=== PATIENT | female | born 1995 | race African-American/Black ===

== ENCOUNTER 2021-03-11 09:10 | Emergency (ER) | payer OTHER, MEDICAID ==
[~2021-03-11] VITALS: Ht 170.2 cm; Wt 87.7 kg
[2021-03-11] MEDS ORDERED: SUPER THERAVIT1 EACH PO (09:18)
[2021-03-11] MEDS ORDERED: IRON PO (09:19)
[2021-03-11] MEDS ORDERED: ACID REFLUX PILL PO (09:20)
[2021-03-11] MEDS ORDERED: VIT D3 PO (09:20)
[2021-03-11 09:45] LABS: ABSOLUTE LYMPHOCYTES 1.9 thou/uL (0.8-5.3); ABSOLUTE MONOCYTES 0.4 thou/uL (0.0-1.2); BASOPHILS 0.9 %; HEMATOCRIT 38.5 % (37.0-47.0); HEMOGLOBIN 12.8 gm/dL (12.0-15.0); LYMPHOCYTES 43.9 %; MCH 25.3 pg (26.0-34.0); MCHC 33.2 g/dL (28.0-37.0); MCV 76.3 fL (80.0-100.0); MONOCYTES 8.6 %; MPV 8.4 fl. (7.2-11.1); NUCLEATED RBCS 0 /100WBC; PLATELET COUNT* 249 thou/uL (150-400); POLYS 45.6 %; RBC 5.04 mil/uL (4.20-5.00); RDW-CV 14.3 % (10.5-14.5); WBC 4.3 thou/uL (4.0-11.0)
[2021-03-11 09:59] LABS: CALCIUM 8.5 mg/dL (8.5-10.1); CREATININE 0.7 mg/dL (0.6-1.3); POTASSIUM 3.8 mmol/L (3.5-5.1)
[2021-03-11 10:03] LABS: ALBUMIN 3.7 g/dL (3.4-5.0); MAGNESIUM 1.8 mg/dL (1.8-2.4); TOTAL BILIRUBIN 0.3 mg/dL (<0.1-1.0); TOTAL PROTEIN 7.5 g/dL (6.4-8.2)
[2021-03-11] MEDS ORDERED: FLEXERIL PO (11:56)
[2021-03-11 12:14] VITALS: BP 125/90
--- NOTE | 2021-03-11 15:47 | EKG ---
[place] [address] ELECTROCARDIOGRAM REPORT Name: DENISE PEREIRA Room: [facility]#: [id number] Admission: 03/11/21 Attend Phys: Discharge: 03/11/21 Date of : 89 Date of Service: 03/11/21914 Report #: [id number] THIS REPORT FOR: //name// [facility] ED Test Date: 2021-03-11 Test Time: 09:15:19 Pat Name: DENISE GARCIADepartment: Room: Gender: F Employer Relations Representative: JAMES : 1995 Requested By: Michael Hinton Order Number: [id number] MD: Melchor Bronson Measurements Intervals [place] Rate: 91 P: 66 PA: 129 QRS: 49 QRSD: 92 T: 51 QT: 354 QTc: 436 Interpretive Statements Sinus rhythm Consider left atrial enlargement No previous ECG available for comparison Electronically Signed On 03-11-2021 15:47:23 CDT by Melchor Bronson [email or web address] <ELECTRONICALLY SIGNED> By: Melchor Bronson MD, [facility] 03/11/21 1547 [id number] 4 Melchor Bronson MD, [facility] /EPI
== END 2021-03-11 12:15 | disposition home or self-care (01) ==
LOC: M.ERS 09:10
PROVIDERS: Emergency Medicine Emergency Medical Services
DX: R07.89 Other chest pain (principal); J45.909 Unspecified asthma, uncomplicated; K21.9 Gastro-esophageal reflux disease without esophagitis; Z79.899 Other long term (current) drug therapy

== ENCOUNTER 2021-07-20 13:25 | Emergency (ER) | payer OTHER, MEDICAID ==
[~2021-07-20] VITALS: Ht 157.5 cm; Wt 86.2 kg
[~2021-07-20 13:25] MED LIST: ACID REFLUX PILL PO; FLEXERIL PO; IRON PO; SUPER THERAVIT1 EACH PO; VIT D3 PO
[2021-07-20 13:51] LABS: URINE BILIRUBIN NEGATIVE (Negative); URINE BLOOD NEGATIVE (Negative); URINE COLOR YELLOW; URINE GLUCOSE-RANDOM NEGATIVE (Negative); URINE KETONES NEGATIVE (Negative); URINE NITRITE-REFLEX NEGATIVE (Negative); URINE PROTEIN NEGATIVE (Negative); URINE UROBILINOGEN 0.2 E.U./dl (0.2-1.0)
[2021-07-20 13:53] LABS: URINE CLARITY CLOUDY; URINE LEUKOCYTES-REFLEX 2+ (Negative)
[2021-07-20 14:03] LABS: SQUAMOUS >10 Many /LPF (0-3); URINE RBC 0-2 Rare /HPF (0-2); URINE WBC-REFLEX 6-15 Few /HPF (0-5)
[2021-07-20 14:04] LABS: BACTERIA-REFLEX 1-9 Few /HPF (None Seen); CASTS None Seen /LPF (None Seen); CRYSTALS None Seen /LPF (None Seen)
[2021-07-20] MEDS ORDERED: FLAGYL500 M1 PO (14:28)
[2021-07-20] MEDS ORDERED: AZITHROMYCIN 2250 MG PO (14:28)
[2021-07-20] MEDS ORDERED: SUPRAX400 M1 PO (14:28)
[2021-07-20] MEDS ORDERED: DIFLUCAN150 MG PO (14:33)
[2021-07-20 14:36] VITALS: BP 124/84
== END 2021-07-20 14:37 | disposition home or self-care (01) ==
LOC: M.ERS 13:25
PROVIDERS: Nurse Practitioner Family
DX: N76.0 Acute vaginitis (principal); B96.89 Other specified bacterial agents as the cause of diseases classified elsewhere; J45.909 Unspecified asthma, uncomplicated; K21.9 Gastro-esophageal reflux disease without esophagitis; Z79.899 Other long term (current) drug therapy

== ENCOUNTER 2021-08-11 10:35 | Emergency (ER) | payer OTHER, MEDICAID ==
[~2021-08-11] VITALS: Ht 157.5 cm; Wt 83.9 kg
[~2021-08-11 10:35] MED LIST changes: +AZITHROMYCIN 2250 MG PO; +DIFLUCAN150 MG PO; +FLAGYL500 M1 PO; +SUPRAX400 M1 PO
[2021-08-11] MEDS ORDERED: AMOXICILLIN 50500 MG PO (12:16)
[2021-08-11] MEDS ORDERED: DIFLUCAN150 MG PO (12:16)
[2021-08-11 12:23] VITALS: BP 114/64
== END 2021-08-11 12:24 | disposition home or self-care (01) ==
LOC: M.ERS 10:35
DX: H66.91 Otitis media, unspecified, right ear (principal); N89.8 Other specified noninflammatory disorders of vagina; J45.909 Unspecified asthma, uncomplicated; K21.9 Gastro-esophageal reflux disease without esophagitis; Z79.899 Other long term (current) drug therapy

== ENCOUNTER 2021-09-08 07:22 | Emergency (ER) | payer OTHER, MEDICAID ==
[~2021-09-08] VITALS: Ht 160 cm; Wt 83.9 kg
[~2021-09-08 07:22] MED LIST changes: +AMOXICILLIN 50500 MG PO; +BENTYL 20 MG TA20 M1 PO; +KEFLEX500 M1 PO; +PHENAZOPYRIDIN200 M2 PO
[2021-09-08] MEDS ORDERED: PROAIR HFA8.5 GM INH (07:38)
[2021-09-08 08:25] LABS: URINE BILIRUBIN NEGATIVE (Negative); URINE BLOOD 3+ (Negative); URINE CLARITY TURBID; URINE COLOR RED; URINE GLUCOSE-RANDOM NEGATIVE (Negative); URINE KETONES NEGATIVE (Negative); URINE NITRITE NEGATIVE (Negative); URINE PROTEIN 1+ (Negative); URINE UROBILINOGEN 0.2 E.U./dl (0.2-1.0)
[2021-09-08 08:36] LABS: URINE LEUKOCYTES NEGATIVE (Negative)
[2021-09-08 08:38] LABS: SQUAMOUS NONE SEEN /LPF (0-3)
[2021-09-08 08:39] LABS: BACTERIA 1-9 Few /HPF (None Seen); CASTS None Seen /LPF (None Seen); MUCUS None Seen strn/LPF (None Seen); RENAL EPITHELIAL CELLS 0-3 Few /LPF (None Seen); TRANSITIONAL EPITHEL CELL 0-3 Few /LPF (None Seen); URINE RBC >20 Many /HPF (0-2); URINE WBC 0-5 Rare /HPF (0-5)
[2021-09-08 08:40] LABS: CRYSTALS None Seen /LPF (None Seen)
[2021-09-08] MEDS ORDERED: NAPROSYN500 M1 PO (08:48)
[2021-09-08 08:53] VITALS: BP 141/96
== END 2021-09-08 08:54 | disposition home or self-care (01) ==
LOC: M.ERS 07:22
PROVIDERS: Emergency Medicine
DX: N93.9 Abnormal uterine and vaginal bleeding, unspecified (principal); Z79.899 Other long term (current) drug therapy

== ENCOUNTER 2021-10-25 06:33 | Emergency (ER) | payer OTHER, MEDICAID ==
[~2021-10-25] VITALS: Ht 157.5 cm; Wt 84.8 kg
[~2021-10-25 06:33] MED LIST changes: +NAPROSYN500 M1 PO; +PROAIR HFA8.5 GM INH
[2021-10-25] MEDS ORDERED: SERTRALINE HCL25 M1 PO (07:43)
[2021-10-25] MEDS ORDERED: NAPROSYN500 MG PO (11:57)
[2021-10-25] MEDS ORDERED: AMOXICILLIN 50500 MG PO (11:57)
[2021-10-25 12:08] VITALS: BP 135/54
[2021-10-25] MEDS ORDERED: DIFLUCAN150 MG PO (12:08)
== END 2021-10-25 12:10 | disposition home or self-care (01) ==
LOC: M.ERS 06:33
DX: J06.9 Acute upper respiratory infection, unspecified (principal); Z98.890 Other specified postprocedural states; Z79.899 Other long term (current) drug therapy; Z79.51 Long term (current) use of inhaled steroids

== ENCOUNTER 2021-12-07 07:53 | Emergency (ER) | payer OTHER, MEDICAID ==
[~2021-12-07] VITALS: Ht 157.5 cm; Wt 86.2 kg
[~2021-12-07 07:53] MED LIST changes: +NAPROSYN500 MG PO; +SERTRALINE HCL25 M1 PO
[2021-12-07 08:01] VITALS: BP 142/95
[2021-12-07 08:08] LABS: URINE BILIRUBIN NEGATIVE (Negative); URINE BLOOD NEGATIVE (Negative); URINE CLARITY CLEAR; URINE COLOR YELLOW; URINE GLUCOSE-RANDOM NEGATIVE (Negative); URINE KETONES NEGATIVE (Negative); URINE LEUKOCYTES-REFLEX NEGATIVE (Negative); URINE NITRITE-REFLEX NEGATIVE (Negative); URINE PROTEIN NEGATIVE (Negative); URINE SPECIFIC GRAVITY >= 1.030 (1.005-1.030); URINE UROBILINOGEN 0.2 E.U./dl (0.2-1.0)
[2021-12-07] MEDS ORDERED: METRONIDAZOLE500 M4 PO (08:18)
[2021-12-07] MEDS ORDERED: DIFLUCAN150 M1 PO (08:18)
== END 2021-12-07 09:22 | disposition home or self-care (01) ==
LOC: M.ERS 07:53
PROVIDERS: Family Medicine
DX: N76.0 Acute vaginitis (principal); Z98.890 Other specified postprocedural states; Z85.41 Personal history of malignant neoplasm of cervix uteri; B96.89 Other specified bacterial agents as the cause of diseases classified elsewhere